=== PATIENT | male | born 1975 | race Caucasian/White ===

== ENCOUNTER 2024-01-15 08:54 | Inpatient (IN) | payer BC ==
[2024-01-05 10:28] LABS: BASOPHILS # (AUTO) 0.1 (0.0-0.1); EOSINOPHILS # (AUTO) 0.2 (0.0-0.4); EOSINOPHILS % 4.4 % (0.0-6.0); HEMATOCRIT 42.1 % (38.2-49.6); HEMOGLOBIN 13.9 g/dL (14.0-18.0); LYMPHOCYTES # (AUTO) 1.6 (1.0-3.2); LYMPHOCYTES % 33.4 % (18.0-39.1); MEAN CORPUSCULAR VOLUME 102.9 fL (81-99); MONOCYTES # (AUTO) 0.6 (0.2-0.8); MONOCYTES % 12.1 % (4.4-11.3); NEUTROPHILS # (AUTO) 2.2 (2.1-6.9); NEUTROPHILS % 46.9 % (38.7-80.0); PLATELET COUNT 188 x10e3/uL (140-360); RED BLOOD COUNT 4.09 x10e6/uL (4.3-5.7); RED CELL DISTRIBUTION WIDTH 11.7 % (11.7-14.4); WHITE BLOOD COUNT 4.73 x10e3/uL (4.8-10.8)
[2024-01-05 10:52] LABS: CALCIUM 9.3 mg/dL (8.4-10.2); CREATININE, SERUM 1.15 mg/dL (0.72-1.25)
[~2024-01-15] VITALS: Ht 177.8 cm; Wt 95.3 kg
[2024-01-15] MEDS: LACTATED RINGER'S 1,000 ML ONE (08:57)
[2024-01-15] MEDS ORDERED: ROCURONIUM BROMIDE 0 ML IV ONE (10:21)
[2024-01-15] MEDS ORDERED: PROPOFOL IV EMULSION 10 MG/ML 20 ML VIAL ONE ×2 (10:21→10:52)
[2024-01-15] MEDS ORDERED: FENTANYL CITRATE/PF 100MCG/2 ML INJ ONE ×5 (10:21→14:44)
[2024-01-15] MEDS ORDERED: LIDOCAINE HCL 2% LOCAL INJ 5 ML SDV VIAL INJ ONE ×2 (10:21→10:52)
[2024-01-15] MEDS ORDERED: ROCURONIUM BROMIDE 1 ML IV ONE ×3 (10:52→12:56)
[2024-01-15] MEDS ORDERED: MIDAZOLAM HCL 2 MG/2 ML VIAL ONE (10:52)
[2024-01-15] MEDS ORDERED: ONDANSETRON HCL INJ 2MG/ML 2ML 2 MG/ML VIAL ONE (11:59)
[2024-01-15] MEDS ORDERED: DEXAMETHASONE SOD PHOS INJ 4 MG/ML SDV ONE (11:59)
[2024-01-15] MEDS ORDERED: ACETAMINOPHEN 1000 MG/100 ML 100 ML IV ONE (12:08)
[2024-01-15] MEDS ORDERED: KETOROLAC TROMETHAMINE 30 MG/ML VIAL ONE (13:00)
[2024-01-15] MEDS ORDERED: SUGAMMADEX SODIUM 200 MG/2 ML VIAL IV ONE (14:36)
[2024-01-15] MEDS ORDERED: NALOXONE HCL INJ 0.4 MG/ML AMP IV PRN (15:00)
[2024-01-15] MEDS ORDERED: KETOROLAC TROMETHAMINE 30 MG/ML VIAL IV PRN (15:00)
[2024-01-15] MEDS: HYDROMORPHONE 0.2MG/ML-SOD CHL 30ML PCA SYRINGE IV PRN (15:20)
[2024-01-15] MEDS: MAGNESIUM SULFATE 2GM/50ML IV ONE (16:15)
[2024-01-15] MEDS: MAGNESIUM SULFATE 2GM/50ML 50 ML IV ONE (16:15)
[2024-01-15 17:00] VITALS: BP 144/100; PULSE 84; RESP 18; TEMP 99; O2SAT 97
[2024-01-15] MEDS: SODIUM CHLORIDE 0.9% 1000ML 1,000 ML IV SCH (17:42)
[2024-01-15 19:08] VITALS: BP 138/102; PULSE 100; RESP 18; TEMP 98.6; O2SAT 97
[2024-01-15 21:00] VITALS: BP 138/102; PULSE 100; RESP 18; TEMP 98.6; O2SAT 97
[2024-01-15 23:16] VITALS: BP 141/95; PULSE 91; RESP 18; TEMP 98.4; O2SAT 94
[2024-01-16] VITALS (10 sets, daily range): BP systolic 143–148; BP diastolic 103–109; PULSE 88–116; RESP 18–20; TEMP 98.2–98.8; O2SAT 94–100
[2024-01-16 05:54] LABS: BASOPHILS % 0.3 % (0.0-1.0); HEMATOCRIT 37.9 % (38.2-49.6); HEMOGLOBIN 13.2 g/dL (14.0-18.0); LYMPHOCYTES # (AUTO) 0.9 (1.0-3.2); LYMPHOCYTES % 8.2 % (18.0-39.1); MEAN CORPUSCULAR HEMOGLOBIN 34.2 pg (28-32); MEAN CORPUSCULAR HGB CONC 34.8 g/dL (31-35); MEAN CORPUSCULAR VOLUME 98.2 fL (81-99); MONOCYTES # (AUTO) 0.9 (0.2-0.8); MONOCYTES % 7.9 % (4.4-11.3); NEUTROPHILS # (AUTO) 9.5 (2.1-6.9); PLATELET COUNT 169 x10e3/uL (140-360); RED BLOOD COUNT 3.86 x10e6/uL (4.3-5.7); RED CELL DISTRIBUTION WIDTH 11.6 % (11.7-14.4); WHITE BLOOD COUNT 11.44 x10e3/uL (4.8-10.8)
[2024-01-16 06:20] LABS: ANION GAP 12.7 mmol/L (8-16); CALCIUM 8.6 mg/dL (8.4-10.2); CREATININE, SERUM 0.85 mg/dL (0.72-1.25); POTASSIUM 3.7 mmol/L (3.5-5.1)
[2024-01-16] MEDS: HYDROCODONE/APAP 7.5MG-325MG 1 EA TAB PO PRN (15:21)
[2024-01-16] MEDS: HYDRALAZINE HCL 20 MG/ML VIAL IV PRN (15:21)
[2024-01-16] MEDS: DIPHENHYDRAMINE HCL INJ 50 MG/ML VIAL IV ONE (20:28)
[2024-01-16] MEDS: HYDROMORPHONE 1MG/1ML INJ IV PRN (21:12)
[2024-01-17] VITALS (9 sets, daily range): BP systolic 145–171; BP diastolic 108–122; PULSE 98–128; RESP 17–20; TEMP 97.5–99.1; O2SAT 92–95
[2024-01-17 05:51] LABS: BASOPHILS # (AUTO) 0.1 (0.0-0.1); BASOPHILS % 0.8 % (0.0-1.0); EOSINOPHILS # (AUTO) 0.1 (0.0-0.4); EOSINOPHILS % 0.4 % (0.0-6.0); HEMATOCRIT 41.7 % (38.2-49.6); HEMOGLOBIN 14.1 g/dL (14.0-18.0); LYMPHOCYTES # (AUTO) 2.4 (1.0-3.2); LYMPHOCYTES % 20.9 % (18.0-39.1); MEAN CORPUSCULAR HEMOGLOBIN 33.9 pg (28-32); MEAN CORPUSCULAR HGB CONC 33.8 g/dL (31-35); MEAN CORPUSCULAR VOLUME 100.2 fL (81-99); MONOCYTES % 8.4 % (4.4-11.3); NEUTROPHILS % 69.2 % (38.7-80.0); PLATELET COUNT 165 x10e3/uL (140-360); RED BLOOD COUNT 4.16 x10e6/uL (4.3-5.7); RED CELL DISTRIBUTION WIDTH 11.8 % (11.7-14.4); WHITE BLOOD COUNT 11.56 x10e3/uL (4.8-10.8)
[2024-01-17] MEDS: TRAMADOL HCL 50 MG TAB PO PRN (06:03)
[2024-01-17 06:22] LABS: ANION GAP 15.3 mmol/L (8-16); CALCIUM 9.5 mg/dL (8.4-10.2); CREATININE, SERUM 1.01 mg/dL (0.72-1.25)
[2024-01-17 06:24] LABS: POTASSIUM 3.3 mmol/L (3.5-5.1)
[2024-01-17] MEDS: MAGNESIUM HYDROXIDE 30 ML UDC PO ONE (21:37)
[2024-01-17] MEDS: ONDANSETRON HCL INJ 2MG/ML 2ML 2 MG/ML VIAL IV PRN (22:18)
[2024-01-18] VITALS: BP 111/82; PULSE 103; RESP 18; TEMP 99; O2SAT 98
[2024-01-18 04:00] VITALS: BP 134/106; PULSE 94; RESP 18; TEMP 98.8; O2SAT 95
[2024-01-18 06:06] LABS: BASOPHILS # (AUTO) 0.1 (0.0-0.1); BASOPHILS % 0.9 % (0.0-1.0); EOSINOPHILS # (AUTO) 0.1 (0.0-0.4); EOSINOPHILS % 1.2 % (0.0-6.0); HEMATOCRIT 37.9 % (38.2-49.6); HEMOGLOBIN 13.3 g/dL (14.0-18.0); LYMPHOCYTES # (AUTO) 1.3 (1.0-3.2); LYMPHOCYTES % 13.3 % (18.0-39.1); MEAN CORPUSCULAR HEMOGLOBIN 34.5 pg (28-32); MEAN CORPUSCULAR HGB CONC 35.1 g/dL (31-35); MEAN CORPUSCULAR VOLUME 98.4 fL (81-99); MONOCYTES # (AUTO) 1.1 (0.2-0.8); MONOCYTES % 11.1 % (4.4-11.3); PLATELET COUNT 164 x10e3/uL (140-360); RED BLOOD COUNT 3.85 x10e6/uL (4.3-5.7); RED CELL DISTRIBUTION WIDTH 11.6 % (11.7-14.4); WHITE BLOOD COUNT 9.55 x10e3/uL (4.8-10.8)
[2024-01-18 06:34] LABS: ANION GAP 14.3 mmol/L (8-16); CALCIUM 9.6 mg/dL (8.4-10.2); CREATININE, SERUM 0.86 mg/dL (0.72-1.25)
[2024-01-18 06:39] LABS: POTASSIUM 3.3 mmol/L (3.5-5.1)
[2024-01-18 08:00] VITALS: BP 140/116; PULSE 104; RESP 19; TEMP 98.4; O2SAT 92
[2024-01-18 08:53] VITALS: BP 140/116; PULSE 104; RESP 19; TEMP 98.4; O2SAT 92
[2024-01-18] MEDS: BUPIVACAINE LIPOSOME/PF 266 MG/20 ML IJ ONE (09:15)
[2024-01-18 12:00] VITALS: BP 150/117; PULSE 122; RESP 19; TEMP 97.8; O2SAT 93
[2024-01-18 16:00] VITALS: BP 149/114; PULSE 116; RESP 19; TEMP 97.7; O2SAT 94
== END 2024-01-18 19:30 | disposition home or self-care (01) | DRG 355 ==
LOC: OR 08:54 → PACU V 14:58 → MED/SURG2 16:30
PROVIDERS: ADMIT Surgery; ATTEND Surgery
PROC: 0WUF0JZ Supplement Abdominal Wall with Synthetic Substitute, Open Approach (ICD-10-PCS; principal; 2024-01-15 11:21)
DX: K43.0 Incisional hernia with obstruction, without gangrene (principal); K42.9 Umbilical hernia without obstruction or gangrene; G89.29 Other chronic pain; G47.33 Obstructive sleep apnea (adult) (pediatric); E66.01 Morbid (severe) obesity due to excess calories; Z68.30 Body mass index [BMI] 30.0-30.9, adult; Z71.3 Dietary counseling and surveillance; Z71.81 Spiritual or religious counseling
CPT/HCPCS: 36415; 80048; 85025; 88302; 93005; 94799; 99252; C1781; J0360; J0690; J0696; J1100; J1171; J1200; J1885; J2003; J2250; J2405; J2470; J3475; J7030